=== PATIENT | male | born 2000 | race Caucasian/White ===

== ENCOUNTER 2022-01-26 16:36 | Emergency (ER) | payer BC, SELFPAY ==
[2022-01-26 16:37] VITALS: BP 113/82; PULSE 79; RESP 16; TEMP 36.6; O2SAT 98; BMI 19.5
--- NOTE | 2022-01-26 17:35 | NURSING ---
NO OLD EKGS
--- NOTE | 2022-01-26 18:38 | EKG12_ITS ---
Test Reason : DYSRHYTHMIA Blood Pressure : / mmHG Vent. Rate : 063 BPM Atrial Rate : 063 BPM P-R Int : 184 ms QRS Dur : 118 ms QT Int : 394 ms P-R-T Axes : -13 -62 038 degrees QTc Int : 403 ms Normal sinus rhythm Left axis deviation Poor R wave progression Abnormal ECG Confirmed by CHARLES OLMOS, MALIA ([id number]), editorial intern DEVON SANCHEZ ([id number]) on 01/28/2022 9:43:10 AM Referred By: CAROL Confirmed By:MALIA SOTO MD
[2022-01-26 19:02] LABS: Absolute Lymphocyte Count 1.18 X10^3/uL (0.83-4.51); Absolute Neutrophil Count 4.9 X10^3/uL (2.0-7.7); Basophil# 0.03 X10^3/uL; Basophil% 0.5 % (0-1); Eosinophil# 0.02 X10^3/uL; Eosinophils% 0.3 % (0-5); Hematocrit 43.5 % (40-54); Hemoglobin 15.1 g/dL (13.0-16.5); Lymphocyte # 1.18 X10^3/ul (0.83-4.51); Mean Corp Hgb Conc 34.7 g/dL (32-36); Mean Corpuscular Hgb 30.3 pg (27.0-32.0); Mean Corpuscular Volume 87.3 fL (80-94); Mean Platelet Vol. 9.7 fl (6.2-12.0); Monocyte# 0.47 X10^3/uL; Monocyte% 7.2 % (0-10); NRBC Flagged by Analyzer 0 % (0-5); Neutrophil # 4.86 X10^3/uL (2.7-7.7); Neutrophil % 73.8 % (47-70); Platelet Count 237 K/mm3 (150-450); RBC Distribution Width SD 38.7 fl (35.1-43.9); Red Blood Count 4.98 M/mm3 (4.6-6.2); White Blood Count 6.6 K/mm3 (4.4-11.0)
[2022-01-26] MEDS: 0.9% Normal Saline 1,000 ML 999 ML IV (19:12)
[2022-01-26 19:23] LABS: Anion Gap 7 (5-15); BUN 7 mg/dL (7-18); BUN/Creat Ratio 8.7 RATIO (10-20); Calcium,Total 9.4 mg/dL (8.5-10.1); Chloride 105 mmol/L (98-107); Creatinine, Serum 0.81 mg/dL (0.70-1.30); EST Glomerular Filtration Rate 130 mL/min (>60); Est Glom Filt Rate - Afr Amer 157 mL/min (>60); Estimated Creatinine Clearance 130.66 ml/min; Glucose 114 mg/dL (74-106); Potassium 3.8 mmol/L (3.5-5.1); Sodium Level 139 mmol/L (136-145); Troponin-I HS 3 pg/mL (3.0-78.0)
--- NOTE | 2022-01-26 19:38 | EX.ED.DYSGE1 ---
HPI History of Present Illness Chief Complaint: Syncope Informant: patient and parent Onset/Context/Timing Onset: Today Context: Sudden Onset Timing: Intermittent (once today) and Lasts (couple seconds) Current Severity: Gone Maximum Severity: Moderate Worsened by: unk Relieved by: nothing in particular Associated Symptoms Associated Symptoms: nasal pain/abrasion Narrative Narrative: Patient states he was sitting at his desk today, he looked at a coworker and a nearby cubicle when he suddenly started feeling lightheaded, tunnel vision, and he does not think he completely passed out. However he came very close, this caused his body to lose postural stability, he hit his face on his desk and then fell out of his chair to the floor, and he states he was aware of it immediately which is why does not think he lost consciousness completely. He states he had no prodromal symptoms prior to this. However, he states earlier in the day he had a couple episodes of brief palpitations and some lightheadedness and tunnel vision that did not lead to the severity that this prior episode did prior to arrival here. He denies any headaches, focal neurologic symptoms, chest pain, dyspnea. He has had this happen maybe 2 other times in his life. When he was 3 he had congenital heart problems repaired surgically and currently is following with [facility], he has been referred referred to a new one that he has not yet seen that is a steel finisher for congenital heart disease that sees adults. PFSH PFSH Medical History no medical history no medical history Home Medications rizatriptan 10 mg tablet 10 mg PO PRN PRN Migraine Headache 01/26/22 [History Last Taken Unknown] Allergy/AdvReac Type Severity Reaction Status Date / Time No Known Allergies Allergy Verified 01/26/22 16:39 Surgical History (Updated 01/26/22 @ 19:[address] Can Nunez MD) H/O congenital atrial septal defect (ASD) repair H/O mitral valve repair Hx of ventricular septal defect repair Social History Smoking Status: Never smoker ROS ROS ED Constitutional Constitutional ED: Denies chills or fever(s) Eyes Eyes: Denies change in vision or diplopia ENT ENT ED: Reports facial pain; Denies epistaxis, rhinorrhea or sore throat Cardiovascular Cardiovascular: Reports as per HPI, lightheadedness, palpitations and syncope; Denies chest pain Respiratory/Chest Respiratory/Chest: Denies cough or dyspnea Gastrointestinal Gastrointestinal: Denies abdominal pain, diarrhea, nausea or vomiting Genitourinary Genitourinary ED: Denies dysuria or hematuria Musculoskeletal Musculoskeletal: Denies back pain or neck pain Integumentary Denies abscess or rash Neurologic Neurologic: Denies headache(s), paresthesias or weakness Psychiatric Psychiatric: Denies anxiety or suicidal thoughts EXAM Physical Exam Const Vital Signs: 01/26/22 16:37 01/26/22 18:30 01/26/22 19:51 Temperature 98 F Temperature Source Temporal Pulse Rate 79 69 Respiratory Rate 16 12 Respiratory Effort Normal Non-Labored Respiratory Pattern Normal Blood Pressure 113/82 H Blood Pressure Mean 92 Pulse Ox 98 100 Oxygen Delivery Method Room Air 01/26/22 20:19 Temperature Temperature Source Pulse Rate 79 Respiratory Rate 20 H Respiratory Effort Respiratory Pattern Blood Pressure 112/72 Blood Pressure Mean 85 Pulse Ox 100 Oxygen Delivery Method Room Air Positive well nourished and well developed General Appearance ED: well developed and NAD HEENT Reports moist mucous membranes HEENT Narrative: Nasal bridge abrasion without laceration. No bony tenderness. No deformities no swelling. Also small abrasion/contusion left forehead without crepitance or hematoma or depression. No raccoon eyes. No pickering sign. No CSF otorhinorrhea. normocephalic and atraumatic Eyes PERRL and EOMs intact bilaterally Neck full ROM and supple Resp normal respiratory effort and clear to auscultation bilaterally Cardio regular rate, regular rhythm and no murmurs GI non-tender and non-distended Auscultation: normoactive bowel sounds Palpation: soft Back/Spine no CVA tenderness General Back: other FROM Extremity normal to inspection General Extremety ED: Negative for edema, pulses abnormal or tenderness General Extremity: Negative for edema or pulses abnormal Neuro oriented x3, CN's II-XII intact bilaterally and no sensory deficits noted Sensorium / Orientation: awake and alert Motor Exam: strength 5/5 throughout Skin no rashes or lesions noted and no wounds MDM MDM MDM Narrative Medical decision making narrative: I saw some brief ectopy that the patient was asymptomatic with here in the emergency department but otherwise, his EKG is only remarkable for a left axis, I have nothing old to compare to, and everything else is unremarkable. He had no other clinical or telemetry events here in the emergency department. I think he is safe to be discharged, he needs to follow-up closely with cardiology. I am not able to place a Holter monitor here in the emergency department if he is following up with a different steel finisher, but I suspect that will be the next test they will want to do. Given that he has had this happen 2 or 3 times his entire life, I do not think admitting to the hospital will necessarily be beneficial. He and mother are comfortable with this plan. Lab Data Attestation: I reviewed the patient's lab results. Labs: Laboratory Results - last 24 hr 01/26/22 01/26/22 18:55 18:55 WBC 6.6 RBC 4.98 Hgb 15.1 Hct 43.5 MCV 87.3 MCH 30.3 MCHC 34.7 RDW Std Deviation 38.7 RDW Coeff of Karlo 12.0 Plt Count 237 MPV 9.7 Immature Gran % (Auto) 0.200 Neut % (Auto) 73.8 H Lymph % (Auto) 18.0 L [place] % (Auto) 7.2 Eos % (Auto) 0.3 Baso % (Auto) 0.5 Absolute Neuts (auto) 4.9 Absolute Lymphs (auto) 1.18 Nucleated RBC % 0 Sodium 139 Potassium 3.8 Chloride 105 Carbon Dioxide 27.0 Anion Gap 7 BUN 7 Creatinine 0.81 Estim Creat Clear Calc 130.66 Est GFR (MDRD) Af Amer 157 Est GFR (MDRD) Non-Af 130 BUN/Creatinine Ratio 8.7 L Glucose 114 H Calcium 9.4 Troponin I High Sens 3 Rhythm Strip Rhythm Strip: Sinus Rhythm Rate: 70 Ectopy: PAC(s) EKG Initial EKG: Attestation: I personally reviewed and interpreted this EKG as follows: Interpretation: Sinus Rhythm, No Acute Injury Pattern and LAFB Prior: No Prior Discharge Plan Triage Chief Complaint: Syncope ED Provider: Can Nunez Dx/Rx/DC Orders Clinical Impression: Near syncope, Heart palpitations, Hx of congenital heart disease Instructions: ED Near-Fainting, Uncertain Cause Prescriptions: No Action rizatriptan 10 mg Tablet 10 mg PO PRN PRN (Reason: Migraine Headache) Primary Care Provider: Piyush Bowen Referrals: Angel Aguila MD [Med Staff - Active Staff] - (In case you need local cardiology referral if you have trouble getting into your former [facility] steel finisher.) Piyush Bowen MD [Primary Care Provider] - (and/or your new steel finisher at [facility]) Disposition Disposition: Home, Self Care
[2022-01-26 19:51] VITALS: PULSE 69; RESP 12; O2SAT 100
[2022-01-26 20:19] VITALS: BP 112/72; PULSE 79; RESP 20; O2SAT 100
== END 2022-01-26 21:24 | disposition home or self-care (01) ==
PROVIDERS: Emergency Provider Emergency Medicine; PCP Pediatrics; Visit Provider Emergency Medicine
DX: R55 Syncope and collapse (principal); S00.31XA Abrasion of nose, initial encounter; R00.2 Palpitations; Q24.9 Congenital malformation of heart, unspecified; W18.09XA Striking against other object with subsequent fall, initial encounter; Y99.0 Civilian activity done for income or pay
CPT/HCPCS: 80048; 84484; 85025; 93005; 96360; 99283; J7030